=== PATIENT | male | born 1985 | race Caucasian/White ===

== ENCOUNTER 2018-07-25 18:48 | Emergency (ER) | payer OTHER ==
[~2018-07-25] VITALS: Ht 182.9 cm; Wt 85.7 kg
== END 2018-07-25 20:51 | disposition home or self-care (01) ==
LOC: ER 18:48
DX: S61.221A Laceration with foreign body of left index finger without damage to nail, initial encounter (principal); W26.0XXA Contact with knife, initial encounter; Y93.89 Activity, other specified; Y92.89 Other specified places as the place of occurrence of the external cause; Y99.8 Other external cause status

== ENCOUNTER 2018-09-08 00:47 | Emergency (ER) | payer OTHER ==
[~2018-09-08] VITALS: Ht 180.3 cm; Wt 86.2 kg
[2018-09-08] MEDS ORDERED: ZOFRAN4 MG PO (04:21)
[2018-09-08] MEDS ORDERED: PEPCID40 MG PO (04:21)
== END 2018-09-08 04:31 | disposition home or self-care (01) ==
LOC: ER 00:47
DX: K29.70 Gastritis, unspecified, without bleeding (principal)

== ENCOUNTER 2019-11-20 12:48 | Outpatient (CLI) | payer OTHER ==
[~2019-11-20 12:48] MED LIST: PEPCID40 MG PO; ZOFRAN4 MG PO
== END 2019-11-20 13:56 | disposition home or self-care (01) ==
LOC: SONOGRAMA 12:48 → MAMO-SONO 13:15 → SONOGRAMA 13:56
PROVIDERS: ATTEND Surgery
DX: N50.89 Other specified disorders of the male genital organs (principal); N20.1 Calculus of ureter; R10.84 Generalized abdominal pain

== ENCOUNTER → 2020-04-20 | Outpatient (CLI) | payer OTHER | END | disposition home or self-care (01) | LOC: MRI 11:14 | PROVIDERS: ATTEND Orthopaedic Surgery | DX: M25.561 Pain in right knee (principal); M25.562 Pain in left knee | CPT/HCPCS: 73721 ==